=== PATIENT | male | born 1985 | race Hispanic/Latino ===

== ENCOUNTER 2017-06-05 21:21 | Emergency (ER) | payer OTHER ==
[~2017-06-05] VITALS: Ht 167.6 cm; Wt 77.2 kg
[2017-06-05] MEDS ORDERED: IBUP-1022 PO (21:32)
[2017-06-05] MEDS ORDERED: CYCL10TA PO (21:32)
[2017-06-05 22:29] VITALS: BP 144/96
== END 2017-06-05 22:52 | disposition home or self-care (01) ==
LOC: M ED 21:21
DX: M54.42 Lumbago with sciatica, left side (principal)